=== PATIENT | female | born 1985 | race Caucasian/White ===

== ENCOUNTER → 2017-08-17 | Outpatient (CLI) | payer OTHER | END | disposition home or self-care (01) | LOC: PPH VACUNA 10:40 → PPHC 11:00 | DX: Z23 Encounter for immunization (principal) ==

== ENCOUNTER 2017-08-28 12:15 | Inpatient (IN) | payer OTHER ==
[~2017-08-28] VITALS: Ht 170.2 cm; Wt 66.2 kg
[2017-09-17] MEDS ORDERED: SYNTHROID50 MCG PO (09:02)
[2017-09-17] MEDS ORDERED: PRENATAL FORMU1 EAC2 PO (09:03)
== END 2017-09-19 10:29 | DRG 775 ==
LOC: LDR 09-17 06:39 → OB/GYN 09-17 06:39 → LDR 09-17 07:27 → OB/GYN 09-17 21:16
PROC: 10E0XZZ Delivery of Products of Conception, External Approach (ICD-10-PCS; principal; 2017-09-17)
PROC: 0HQ9XZZ Repair Perineum Skin, External Approach (ICD-10-PCS; 2017-09-17)
PROC: 10907ZC Drainage of Amniotic Fluid, Therapeutic from Products of Conception, Via Natural or Artificial Opening (ICD-10-PCS; 2017-09-17)
PROC: 4A1HXCZ Monitoring of Products of Conception, Cardiac Rate, External Approach (ICD-10-PCS; 2017-09-17)
PROC: 4A033R1 Measurement of Arterial Saturation, Peripheral, Percutaneous Approach (ICD-10-PCS; 2017-09-17)
PROC: 3E033VJ Introduction of Other Hormone into Peripheral Vein, Percutaneous Approach (ICD-10-PCS; 2017-09-17)
DX: O70.0 First degree perineal laceration during delivery (principal); Z37.0 Single live birth; Z3A.39 39 weeks gestation of pregnancy

== ENCOUNTER 2019-01-13 09:20 | Outpatient (CLI) | payer OTHER | END 2019-01-13 10:18 | disposition home or self-care (01) | LOC: LAB 09:20 | DX: E03.8 Other specified hypothyroidism (principal); M81.0 Age-related osteoporosis without current pathological fracture; D63.8 Anemia in other chronic diseases classified elsewhere; N30.90 Cystitis, unspecified without hematuria; E78.00 Pure hypercholesterolemia, unspecified ==

== ENCOUNTER → 2019-01-13 | Outpatient (CLI) | payer OTHER ==
[~2019-01-13] MED LIST: PRENATAL FORMU1 EAC2 PO; SYNTHROID50 MCG PO
== END | disposition home or self-care (01) ==
LOC: SONOGRAMA 09:07 → MAMO-SONO 09:15
DX: E03.8 Other specified hypothyroidism (principal); E04.2 Nontoxic multinodular goiter